=== PATIENT | female | born 1995 | race Caucasian/White ===

== ENCOUNTER 2020-09-18 06:45 | Outpatient (REF) | payer OTHER, SELFPAY ==
[2020-09-18 07:40] LABS: COVID-19 Test Negative (Negative)
== END 2020-09-18 06:46 | disposition home or self-care (01) ==
LOC: HO.EMPCOV 06:45
PROVIDERS: Visit Provider Internal Medicine
DX: Z20.828 Contact with and (suspected) exposure to other viral communicable diseases (principal)
CPT/HCPCS: 87635; C9803

== ENCOUNTER → 2022-08-18 10:01 | Outpatient (RCR) | payer OTHER, SELFPAY ==
[2020-09-11 06:57] LABS: COVID-19 Test Negative (Negative)
[2020-09-25 14:21] LABS: COVID-19 Test Negative (Negative)
[2020-10-01 14:35] LABS: COVID-19 Test Negative (Negative)
[2020-10-18 10:00] LABS: SARS-COV-2 PCR UMBRL Not Detected
[2020-10-29 09:46] LABS: SARS-COV-2 PCR UMBRL Not Detected
[2020-11-08 09:23] LABS: SARS-COV-2 PCR UMBRL Not Detected
== END | disposition home or self-care (01) ==
LOC: HO.EMPCOV 09-11 06:36
PROVIDERS: Visit Provider Internal Medicine
DX: Z20.828 Contact with and (suspected) exposure to other viral communicable diseases (principal)
CPT/HCPCS: 36415; 87635; C9803; U0003